=== PATIENT | male | born 2000 | race Caucasian/White ===

== ENCOUNTER 2022-06-27 12:54 | Emergency (ER) | payer MEDICAID ==
[~2022-06-27] VITALS: Ht 167.6 cm; Wt 60.0 kg
[2022-06-27 13:12] VITALS: BP 117/67
[2022-06-27] MEDS ORDERED: OXYCODONE HCL/ACETAMINOPHEN 5/325MG TABLET PO ONE (14:15)
[2022-06-27] MEDS ORDERED: IBUP-2029 MT (14:52)
[2022-06-27] MEDS ORDERED: IBUPROFEN 600MG TABLET PO ONE (15:00)
== END 2022-06-27 15:07 | disposition home or self-care (01) ==
LOC: ER 12:54
DX: M79.601 Pain in right arm (principal); V49.9XXA Car occupant (driver) (passenger) injured in unspecified traffic accident, initial encounter; Y93.9 Activity, unspecified; Y92.89 Other specified places as the place of occurrence of the external cause; Y99.8 Other external cause status
CPT/HCPCS: 73060; 73070; 99284